=== PATIENT | male | born 1970 | race Caucasian/White ===

== ENCOUNTER → 2021-11-05 | Outpatient (CLI) | payer BC ==
--- NOTE | 2021-11-06 12:25 | MR ---
MRI liver. HISTORY: Liver mass based on CT abdomen pelvis dated outside facility on 10/21/2021. COMPARISON: CT abdomen from outside facility dated 10/21/2021. TECHNIQUE: Multiecho multiplanar images of the liver were obtained with and without contrast. Delayed postcontrast images were obtained. FINDINGS: There is an 8 mm mass in the anterior segment of the right lobe of liver which is too small to be [place] ntified with certainty but most likely represents a small hemangioma it appears to partially enhance peripherally on the delayed images. The gallbladder is normal without gallstones, wall thickening, pericholecystic fluid or distention. T here is no biliary ductal dilatation. There is no focal mass or organomegaly involving the liver, pancreas, spleen or adrenal glands. The kidneys excrete contrast promptly and symmetrically and there is no solid renal mass or hydroneph rosis. There is a small simple cortical cyst of the posterior left kidney. The caliber of the abdominal aorta is normal. The visualized bowel loops are normal in caliber. There is no free intraperitoneal air or fluid. IMPRESSION: 8 mm well-circumscribed mass in the right lobe of liver which is too small to be characterize with ce rtainty. It likely represents a small hemangioma. Follow-up MRI liver is recommended in 4-6 months to confirm stability.
== END | disposition home or self-care (01) ==
LOC: RADMRIMAIN 17:50
PROVIDERS: ATTEND Nurse Practitioner Family
DX: R16.0 Hepatomegaly, not elsewhere classified (principal)
CPT/HCPCS: 74183; A9585

== ENCOUNTER → 2022-03-29 | Outpatient (CLI) | payer BC ==
--- NOTE | 2022-03-29 13:55 | MR ---
MR abdomen with and without contrast HISTORY: R 16.0, hepatomegaly Multiplanar multisequence and postcontrast images obtained through the abdomen following [address] IV. Correlation to MR liver 11/05/2021, CT from outside institution 10/21/2021, ultrasound from outside ins titution 10/20/2021 There is artifact over the exam. Echogenic focus seen on ultrasound outside institution shows hyperintense T2, hypointense T1 appearan ce as on prior. Lesion is subcentimeter in size. Following contrast administration there is thought t o be centripetal gradual nodular enhancement, filling in consistent with underlying hemangioma. Liver span is approximately 17.6 cm cephalad to caudal dimension. No additional enhancing mass. No de finite signal drop on out of phase imaging to suggest hepatic steatosis. There is no retroperitoneal adenopathy. Kidneys enhance normally and show normal excretion. Adrenal g lands are normal. Pancreas, spleen, gallbladder are within normal limits. Aorta shows normal caliber. No ascites. No evident bowel obstruction. Previously identified inflammatory change in the right upp er quadrant, along the lateral conal fascia is no longer evident. There is a hiatal hernia present. Lung bases show no effusion. There is an umbilical hernia containin g fat. IMPRESSION: No significant interval change compared to prior MRI. Findings likely benign.
== END | disposition home or self-care (01) ==
LOC: RADMRIMAIN 08:48
PROVIDERS: ATTEND Nurse Practitioner Family
DX: R16.0 Hepatomegaly, not elsewhere classified (principal)
CPT/HCPCS: 74183; A9585